=== PATIENT | male | born 1940 | race Caucasian/White ===

== ENCOUNTER 2019-04-29 08:21 | Inpatient (IN) | payer OTHER, SELFPAY ==
[2019-04-23 13:55] VITALS: BMI 27.4
[2019-04-29] VITALS (15 sets, daily range): BP systolic 97–157; BP diastolic 58–81; PULSE 62–83; RESP 12–18; TEMP 35.7–36.6; O2SAT 96–100; BMI 27.4
--- NOTE | 2019-04-29 07:37 | DI.RAD.S_ITS ---
PROCEDURE: XR KNEE LT 1TO2V INDICATIONS: Post op total knee TECHNIQUE: 2 view(s) of the knee acquired. COMPARISON: SNO Outside Film, RG, KNEE 3VW (LT), 03/09/2019, 15:38. FINDINGS: Bones: Patient is status post knee joint arthroplasty. Hardware components are in expected positions. Visualized bony structures are intact. Soft tissues: Overlying postoperative changes are noted. IMPRESSION: Left knee arthroplasty as above. Dictated by: Carrie Tran M.D. on 04/29/2019 at 14:00 Approved by: Carrie Tran M.D. on 04/29/2019 at 14:01
[2019-04-29] MEDS: LACTATED RINGERS 1,000 ML 42 ML IV ×2 (08:38→11:13)
[2019-04-29] MEDS: CELECOXIB 200 MG CAPSULE PO (09:09)
[2019-04-29] MEDS: PREGABALIN 75 MG CAPSULE PO (09:09)
[2019-04-29] MEDS: ACETAMINOPHEN 325 MG TABLET 975 MG PO ×2 (09:09→16:35)
--- NOTE | 2019-04-29 09:52 | PM.PREOP ---
Pre-operative Note Interval Note History & Physical reviewed/Exam performed by Physician: Yes Changes to H&P: No
--- NOTE | 2019-04-29 10:12 | P.OP_ITS ---
Operative Date/Time/Diagnoses Date of procedure: 04/29/19 Time of procedure: 12:00 Pre-op diagnosis: Left knee osteoarthritis Post-op diagnosis: same Procedure & Clinicians Procedure: Left total knee replacement Same procedure as scheduled: Yes Indications: The patient has had progressively worsening left knee pain with radiographic changes consistent with arthritis. Non-operative management has failed and the patient has requested total knee replacement. The risks, benefits and alternatives to surgery were discussed with the patient prior to proceeding. Risks discussed included, but were not limited to, failure to relieve pain, stiffness, infection, nerve damage, deep venous thrombosis, pulmonary embolism, stroke, coma, heart attack, permanent paralysis and , as well as the potential need for eventual revision of the prosthetic. Surgeon: Jasvir Johnson Strip Mine Supervisor: Pilar Duncan Click Yes if Unassisted: No Anesthesia Type: General, Peripheral nerve block and Local Operative Notes Findings: Severe osteoarthritis of the left knee with market varus deformity and erosion of the medial tibial plateau Closure Type: primary Specimen(s): none sent Prosthetic devices, grafts, tissues, transplants, or devices: Implants used in this procedure were manufactured by the [employer] and [facility] and included the BCS II Journey total knee replacement with a size 8 left cobalt chromium femur, size 7 left non porous tibial base plate, a 10 mm cross-linked polyethylene BCS II tibial insert and a 38 mm oval Azra II patellar component. Applied: implant(s) Estimated Blood Loss (mL): 25 Blood products transfused: none Tourniquet time (min): 62 Procedure in detail: The patient was seen in the pre-operative area, where the left knee was identified as the operative site and this was marked with my initials. The patient received pre-operative antibiotics, and was taken to the operating room and placed on the operative table in the supine position. After satisfactory anesthesia, a sheeter machine operator out? was performed. The left leg was encircled with a tourniquet about the proximal thigh, and the leg was prepared from the toes to the tourniquet with ChloroPrep in the usual fashion and draped through sterile drapes. The leg was elevated and exsanguinated with Eschmark bandage and the tourniquet inflated to 250 mmHg pressure. The knee was approached through an approximately 18 cm incision centered over the patella and carried into the knee through a medial parapatellar arthrotomy. A medial release of the tissues off the tibia was performed due to the significant varus deformity. The anterior osteophytes and soft tissues were removed. The rotational landmarks of Musselshell's line and the transepicondylar axis were marked on the femur with electrocautery, and intramedullary guide holes for the femur and tibia were created. The distal femoral cut was made in 6 degrees of valgus using the intramedullary guide at the primary cut setting. The proximal tibial cut was then made using the intramedullary guide, taking 9 mm of bone off the less involved side. The extension gap was checked and the rotation of the femoral component confirmed with the gap balancing blocks. The anterior, posterior and chamfer cuts were then made. The posterior osteophytes and soft tissues were then removed. The posterior capsule was injected with part of a mixture of 60 ml 0.25% Marcaine mixed with 20 ml Exparel and 4 mg of morphine for post-operative pain control. The remainder of this mixture was injected into the capsule and subcutaneous tissues during cement curing. The tibia was prepared with the rotation set by an extra medullary guide. Trial tibial and femoral components were then placed and the intercondylar notch cut through the femoral trial. Range of motion was 0-130 degrees, with good stability throughout the range. The patella was then cut to accommodate the patellar prosthetic. There was no need for a lateral release. The trials were then removed, and the femoral hole plugged with a bone plug. The bone was prepared with pulsatile lavage, and dried with a sponge. Cement was applied and the final prosthetics placed. Excess cement was removed during and after cement curing. After confirming there was no extruded cement posteriorly, the final tibial insert was placed. The knee was copiously irrigated and the tourniquet deflated. Hemostasis was obtained. The capsule was closed with interrupted # 2 polyester sutures. The subcutaneous layer was closed with 3-0 Vicryl, and the skin with a running 3-0 V-Lock suture and SteriStrips. An Aquacel Ag dressing was applied and the patient was taken to recovery having tolerated the procedure well. Complications: none Condition: stable Disposition: PACU Plan for aftercare: The patient will be maintained on a standard total knee replacement protocol with weight bearing as tolerated. The patient will receive aspirin and sequential compression devices for DVT prophylaxis. The patient will be discharged home when safe for the home environment.
[2019-04-29] MEDS: MIDAZOLAM 2 MG/2 ML VIAL 1 MG IV (10:22)
[2019-04-29] MEDS: fentaNYL 100 MCG/2 ML INJ 50 MCG IV ×3 (10:22→13:35)
--- NOTE | 2019-04-29 10:28 | SUR.PREOP ---
Pt transferred to room 5 for block. Block start time 1020. Monitoring initiated and maintained throughout procedure. Oxygen and medications given per anesthesiologist instructions. Patient remained stable throughout procedure, no adverse reactions noted. Block end time 1030.
[2019-04-29] MEDS: CEFAZOLIN 2 GM/100 ML FROZ.PIGGY IV ×2 (10:37→22:36)
[2019-04-29] MEDS: TRANEXAMIC ACID 1,000 MG VIAL 1000 MG INJ ×2 (11:07→12:18)
--- NOTE | 2019-04-29 11:20 | SUR.OPER ---
Supine on padded OR bed. Pillow under head, arms secured on padded armboards <90 degree abduction. Safety belt across torso. Non-operative leg secured with tape over blanket over lower leg. Operative leg secured in DeMayo/Ibrahima positioner.
[2019-04-29] MEDS: BUPIVACAINE 0.25% W/ EPI 30 ML VIAL 60 ML INJ (11:30)
[2019-04-29] MEDS: MORPHINE 4 MG/ML INJ INJ (11:31)
[2019-04-29] MEDS: BUPIVACAINE LIPOSOME 266 MG/20 ML VIAL INJ (11:31)
[2019-04-29] MEDS: HYDROMORPHONE 2 MG INJ 0.5 MG IV (13:23)
[2019-04-29] MEDS: LACTATED RINGERS 1,000 ML 125 ML IV ×2 (14:30→22:36)
--- NOTE | 2019-04-29 15:21 | PC.NURSE ---
1405 Pt arrived from PACU via bed. Pt A&Ox4. O2 2 LNC on, SL R FA. SCD on, Pt able to do ankle waves. Pt denies pain at this time. at bedside. 1435 Pt states not voided since 829, completed a bladder scan for 660. 1445 Pt voided [address] cath for 300ml.
[2019-04-29] MEDS: IBUPROFEN 400 MG TABLET PO ×2 (16:58→21:07)
[2019-04-29] MEDS: CARBIDOPA-LEVODOPA 25/100 TABLET 1 EACH PO (16:59)
[2019-04-29] MEDS: OXYCODONE IR 5 MG TABLET PO (19:32)
[2019-04-29] MEDS: DOCUSATE 100 MG CAPSULE PO (21:07)
[2019-04-29] MEDS: TRAZODONE 50 MG TABLET PO (21:08)
[2019-04-29] MEDS: ASPIRIN EC 81 MG TABLET PO (21:08)
[2019-04-29] MEDS: CARBIDOPA-LEVODOPA ER 50/200 TABLET 1 EACH PO (21:08)
[2019-04-29] MEDS: ACYCLOVIR 400 MG TABLET PO (21:08)
[2019-04-29] MEDS: PRAMIPEXOLE 0.25 MG TABLET 0.5 MG PO (21:08)
[2019-04-30] MEDS: IBUPROFEN 400 MG TABLET PO ×6 (01:04→20:17)
[2019-04-30 04:01] VITALS: BP 124/60; PULSE 81; RESP 14; TEMP 36.4; O2SAT 99
[2019-04-30] MEDS: CEFAZOLIN 2 GM/100 ML FROZ.PIGGY IV (05:54)
[2019-04-30 05:56] LABS: Hematocrit 32.7 % (41-53); Hemoglobin 11.2 g/dL (13.5-17.5)
--- NOTE | 2019-04-30 06:47 | PC.NURSE ---
Pt. slept most of the shift, reported left & foot numbness is much less this morning. Pain level 2-3/10, only medicated with 400 mg. of Ibuprofen X 2 doses all shift. Took pills with saltine & michele crackers, did not get up OOB, using his urinal & voiding QS 150-675 CC. Will cont. POC & monitor.
--- NOTE | 2019-04-30 07:28 | PM.PNPO.1 ---
Subjective Date Patient Seen: 04/30/19 Time Patient Seen: 07:29 Interval history: The patient reports excellent pain control. He has no specific complaints this morning. He reports he did not have the opportunity to see Physical therapy yesterday. Exam Vital Signs (past 8 hours): - 04/29/19 23:55 04/30/19 04:01 Temperature 97.5 F L 97.5 F L Pulse Rate 76 81 Respiratory Rate 14 14 Blood Pressure 121/60 124/60 Pulse Oximetry 96 99 Oxygen Delivery Method Nasal Cannula Oxygen Flow Rate 0 Narrative Exam Narrative: Left knee wound is dressed with no drainage on the bandage. Calf is soft. Light touch and motion are intact in the left lower extremity. Objective Labs Result Diagrams: 04/30/19 05:07 Labs: Laboratory Results - last 24 hr 04/30/19 05:07 Hgb 11.2 L Hct 32.7 L Assessment & Plan Post-op Postoperative Procedures Operation Date: 04/29/19 10:30 Actual Procedures Side Surgeon p Total Knee Arthroplasty Left Jasvir Johnson MD Postoperative day: 1 Postoperative status: doing well and anemia Postoperative status narrative: The patient is doing well postoperative day 1 status post left total knee replacement. He did not get a chance to see physical therapy yesterday. He does have a mild post hemorrhagic anemia. Postoperative plan: routine post-op care and ambulate Postoperative plan narrative: We will initiate physical therapy today. The patient lives on [facility] and is concerned about being completely ready to go home before being discharged to avoid having to return to the hospital. We will reassess him tomorrow after he has had physical therapy today for possible discharge tomorrow. Time Spent With Patient less than 15 minutes Quality VTE Deep Vein Thrombosis/Pulmonary Embolism Present on Admission: No
[2019-04-30 07:40] VITALS: BP 129/71; PULSE 73; RESP 18; TEMP 36.6; O2SAT 98
[2019-04-30] MEDS: OXYCODONE IR 5 MG TABLET PO ×3 (08:58→23:32)
[2019-04-30] MEDS: FERROUS SULFATE 325 MG TABLET PO (08:58)
[2019-04-30] MEDS: DOCUSATE 100 MG CAPSULE PO ×2 (08:58→20:18)
[2019-04-30] MEDS: ASPIRIN EC 81 MG TABLET PO ×2 (08:58→20:17)
[2019-04-30] MEDS: ACYCLOVIR 400 MG TABLET PO ×2 (08:59→20:17)
[2019-04-30] MEDS: ACETAMINOPHEN 325 MG TABLET 975 MG PO ×3 (08:59→20:15)
[2019-04-30] MEDS: POLYETHYLENE GLYCOL 3350 17 GM POWD.PACK PO (09:01)
--- NOTE | 2019-04-30 09:57 | PT.IIE ---
Current Diagnoses Unilateral primary osteoarthritis, left knee (04/29/19) Surgery Performed Operation Date: 04/29/19 10:30 Actual Procedures p Total Knee Arthroplasty(Left) - Jasvir Johnson MD Surgical History (Last Updated 04/23/19 @ 14:45 by Farheen Tejeda, RN) History of arthroplasty of left shoulder (Acute) History of arthroplasty of right shoulder (Acute) Hx of bilateral cataract extraction (Acute) S/P aortic valve replacement with bioprosthetic valve (Acute 10/05/14) Status post Dupuytren's fasciectomy (Acute) Medical History (Last Updated 04/23/19 @ 14:45 by Farheen Tejeda RN) Anemia (Acute) Atypical chest pain (Acute) BPH (benign prostatic hyperplasia) (Acute) Benign monoclonal gammopathy (Acute) CKD (chronic kidney disease), stage III (Acute) Chronic rhinitis (Acute) Depression (Acute) GERD (gastroesophageal reflux disease) (Acute) HLD (hyperlipidemia) (Acute) HTN (hypertension) (Acute) Herpes, genital (Acute) Melanoma (Acute) CHRISTIAN (obstructive sleep apnea) (Acute) Osteoarthritis (Acute) PTSD (post-traumatic stress disorder) (Acute) RBBB (right bundle branch block) (Acute) RLS (restless legs syndrome) (Acute) Physical Therapy Inpatient Evaluation/Re-Eval M1 PT/OT-IP Prior Functional Status Start: 04/29/19 15:40 Freq: NEEDED Status: Active Protocol: Document 04/30/19 09:57 AB (Rec: 04/30/19 12:50 AB [id number]) Medical Review Prior Functional Status Medical History Reviewed Yes Communication able to make needs known Mobility and Gait pt stated that he is independent with all mobilities and ambulation without AD but uses a SPC for long distance ambulation Social History Household Members spouse Living Arrangements House Number of Floors (Floors) One Floor Number of Stairs To Enter/Railing? 1 step to enter Home Environment Standard Height Toilet Walk in Shower Home Equipment Front Wheel Walker Raised Toilet Seat w/Armrests Employment Status Retired M2 PT-IP Current Condition Start: 04/29/19 15:40 Freq: NEEDED Status: Active Protocol: Document 04/30/19 09:57 AB (Rec: 04/30/19 12:50 AB [id number]) Physical Therapy Current Condition Current Condition Evaluation Date 04/30/19 Treatment Diagnosis s/p L TKR; difficulty in walking Onset Date 04/29/19 Weight Bearing Status Weight Bearing Status Weight Bear as Tolerated M3 PT-IP Subjective Start: 04/29/19 15:40 Freq: NEEDED Status: Active Protocol: Document 04/30/19 09:57 AB (Rec: 04/30/19 12:50 AB [id number]) Subjective Physical Therapy Visit Type Type Initial Evaluation Visit Start Time 09:57 Visit Stop Time 10:40 Total Visit Minutes 43 Number of FISHER TRAMMEL NET Visits 0 Physical Therapy Visit Comments Patient Comments pt agreeable to do PT Therapy Pain Assessment Pain When Pain Assessed At Rest Pain Present Pain Present Pain Reported Location Left Leg Intensity 6 Scale Used Numeric (1 - 10) Pain Management Techniques Apply Cold Re-positioning Timing of Activity with Medications M4 PT-IP Mobility and Gait Start: 04/29/19 15:40 Freq: NEEDED Status: Active Protocol: Document 04/30/19 09:57 AB (Rec: 04/30/19 12:50 AB [id number]) PT-Bed Mobility Assessment Supine to Sit Supine to Sit Standby Assistance Sit to Supine Sit to Supine Standby Assistance Scooting Scooting to Edge of Bed Standby Assistance PT-Transfer Assessment Sit to and From Stand Sit to and from Stand Contact Guard Assistance Equipment Transfer Assistive Device Gait Belt Front Wheeled Walker Orthotic/Prosthetic Devices or Brace: No Transfers Transfer Destination Bed Chair Transfer Technique pt ambulated using FWW Transfer Ability Level of Assist Minimal Assistance Comments Mobility Comments pt completed bed mobilty supine<>sit x 2 sets SBA with pt using RLE to assist LLE. Gait Assessment Gait Gait Assistance Required: Minimum Assistance Distance (Feet) 40 Able to Maintain Weight Bearing Status Yes During Gait Assistive Devices Assistive Device Gait Belt Front Wheeled Walker Orthotic/Prosthetic Devices or Brace: No Gait Deviations General Gait Pattern Antalgic Decreased Stride Length Decreased Feet Clearance Factors Limiting Gait Function Factors Limiting Gait Function Decreased Activity Tolerance Decreased Strength Limited Range of Motion Pain Poor Balance PT-Balance Assessment Sitting Balance and Reactions Static Sitting Balance Ability Good Dynamic Sitting Balance Ability Good Standing Balance and Reactions Static Standing Balance Ability Fair Dynamic Standing Balance Ability Fair Device Used FWW M5 PT-IP Objective Assessments Start: 04/29/19 15:40 Freq: NEEDED Status: Active Protocol: Document 04/30/19 09:57 AB (Rec: 04/30/19 12:50 AB [id number]) Orientation Orientation/Cognition Level of Alertness Alert Orientation Name Age Place Situation Language Function Ability No Deficits Noted Safety Awareness Understands Safety Issues Gross Range of Motion Lower Extremity ROM Assessment Left Impaired Impairments L knee flexion ~ 70 deg L knee extension: lacking ~ 10 deg to extension Strength Lower Extremity Strength Assessment Left Impaired Hip 4-/5 Knee 3+/5 Coordination Assessment Gross Coordination Gross Coordination WNL Sensation Assessment Sensation Gross Sensation WNL Muscle Tone Muscle Tone WNL Yes M6 PT-IP Treatment Start: 04/29/19 15:40 Freq: NEEDED Status: Active Protocol: Document 04/30/19 09:57 AB (Rec: 04/30/19 12:50 AB [id number]) Physical Therapy Treatment Education Education Provided Precautions Weight Bearing Status Post-Op Packet Safety M7 PT-IP Assessment and Plan Start: 04/29/19 15:40 Freq: NEEDED Status: Active Protocol: Document 04/30/19 09:57 AB (Rec: 04/30/19 12:50 AB [id number]) PT Summary Assessment and Plan Potential Rehabilitation Potential Good Status of Condition at Evaluation Stable Summary Impairments Pain ROM Strength Balance Coordination Sensation Bed Mobility Transfers Gait Activity Tolerance Assessment Summary pt requiring min A with ambulation using FWW. pt will likely progress during hospital stay. pt plans to go home with spouse to assist him. will complete stair training prior to d/c. Goals Bed Mobility Goal Independent Transfer Goal Independent Gait Goal Standby Assistance Front Wheel Walker Gait Distance 200 Other Goals up/down 1 steps using FWW SBA Days to Meet Goals 3 Frequency of Treatment Frequency Of Treatment Twice a Day Treatment Plan Physical Therapy Treatment Plan Bed Mobility Training Transfer Training Gait Training Therapeutic Exercise Balance Retraining Post Op Education Discharge Planning Hot or Cold Pack Neuromuscular Re-ed Coordination Retraining Manual Therapy Recommendations To Nursing Amount of Assist Needed 1 Person Assist Discharge Recommendations PT Discharge Recommendations Home with Assistance Outpatient PT
[2019-04-30 11:09] VITALS: BP 131/65; PULSE 78; RESP 18; TEMP 36.8; O2SAT 98
[2019-04-30] MEDS: OXYCODONE IR 10 MG TABLET PO ×2 (11:54→20:15)
--- NOTE | 2019-04-30 14:53 | CM.DANOTE ---
Patient is an 79 year old male who was admitted on 04/29/19 for Left Total Knee. Pt has [place] CHO[place] for insurance and his PCP is Dr. Dc. EMR was reviewed. Per Ortho MD, pt tolerated procedure well and will work with PT and pt is still quite painful. Per PT, pt's pain seems to be managed better now and anticipate that pt will progress enough to safely d/c home with spouse assist and outpt PT. Pt resides on Saturday with his spouse and is Independent with ADL's and typically does not use DME for ambulation although a cane occasionally. Pt's spouse is available for assist at d/c and pt just wants to make sure that he is quite stable before d/c back to [facility]. Plan: SW to follow for further PT tomorrow to confirm that pt will be safe for d/c home with and outpt PT on Saturday. JESUS MANUEL Talbot Discharge Planning/Care Management CM Discharge Assessment Start: 04/30/19 14:52 Freq: Status: Active Protocol: Document 04/30/19 14:52 BF (Rec: 04/30/19 14:53 BF [id number]) Discharge Planning Assessment Assigned Watch Engineer JESUS MANUEL Schreiber DPOA/Assigned Designee Name spouse Advance Directives? Yes Advance Directives on File No History Provided By Patient Medical Record Has Patient been admitted in last 30 No days? Prior Living Arrangements House Household Members spouse Type of transporation used prior to Drives own vehicle admit Independent with ADL's Yes Is patient alert and oriented? Yes Caregiver for Another No Patient/Family Preference OP PT Therapy Barriers to Discharge No Discharge Plan Home Transportation Arrangement Spouse likely able to provide transport at d/c. Referrals Initiated None needed Whiteboard Updated in Patient Room with Yes name and ext. # of Watch Engineer Review Status In Process Please Provide Date Initial DC 04/30/19 Assessment Was Performed Next Review Type Continued Stay Review Pre-Anesthesia Assessment Start: 04/23/19 13:55 Freq: Status: Complete Protocol: Document 04/23/19 13:55 CAB (Rec: 04/23/19 14:36 CAB [id number]) Pre-Anesthesia Assessment Patient Also Known As (AKA) Don Patient Information Reviewed Via Phone Assessment Assessment Completed With Patient Diagnostic Results BMP/CMP CBC EKG Urinalysis Other Comment A1c. Outside labs/EKG scanned to record Primary Care Provider [facility] Seen Specialist in Last 12 Months Yes Specialist Seen Respiratory Therapy Assistant Mobility Architect Manager Orthopedist Other Comment Neurology Primary Language Cymro Supervisor Firearms Required No Height 180.34 cm Weight 89.358 kg Body Mass Index (BMI) 27.4 Hearing Ability Normal Visual Impairment No Limitations Visual Assist None Dentition Type Teeth, Natural Present Teeth, Missing Barriers to Learning None Other Aids No Hx Anesthesia Reactions No Hx Family Anesthesia Reaction No Hx Malignant Hyperthermia No Hx Blood Transfusions No Anesthesia Review Requested Anesthesia review completed prior to being scheduled alcohol intake current alcohol intake frequency a few times a week Smoking Status Former smoker how long ago did patient quit smoking Quit age 26 Substance Use Type does not use Musculoskeletal Symptoms Abnormal Gait Difficulty Walking Joint Pain Joint Stiffness Limited Range of Motion Muscle Cramps History of Falling (Recent or History of No ) Patient is completely paralyzed or No completely immobile Prosthesis or Orthotic Device Cane Mental Status Oriented to own ability Is patient on oxygen? No Does patient have JARA/SOB No Hx Sleep Apnea Yes: Pt denies having, no CPAP Currently Taking a Beta Kenneth No Can You Climb a Flight of Stairs Without Yes SOB Hx Chest Pain No Hx SOB No Hx Syncope or Dizziness No Anti-Coagulant Therapy Yes: 81mg daily, advised to stay on through surgery per surgeon Has a Respiratory Therapy Assistant Yes: [facility] Cardiac Testing Yes: Coronary angiogram Hx Pacemaker/ICD No Pacemaker Rep Required? No Comment Cardiology visit 09/09/18 scanned to record Diet Type At Home Regular dysphagia No Bladder Pattern Nocturia Urinary Catheter Present No Hx Urinary Self Catheterization No Diabetes No HgbA1C 5.4 Date 04/07/19 Hx Drug Resistant Organism No Presence of External or Internal Medical No Devices Have you traveled outside the [facility] in the last 30 days? Marital Status Lives With spouse Prior Living Arrangements House Number of Floors (Floors) One Floor Support System Spouse Does the Patient Have Assistance After Yes Surgery Patient Discharge Plan Description Return Home Comment Pt advised 2-3 night length of stay per surgeon's office Feels Safe in Current Environment Yes Been Physically Hurt or Threatened By a No Person in Current Environment Do you have thoughts of harming yourself None or others? Are you currently considering suicide? No Do you have a plan to hurt yourself or No Plan others? Do You Have Any Spiritual Beliefs That No May Affect Your HC Choices? Do You Have Any Cultural Practices That No May Affect Your HC Choices? Spiritual Referral None Who Can We Speak to About Patient's Care Family, friends Identifying Code for Release of Patient Declines to issue Information Health Care Proxy/Next of Kin Claribel () Health Care Proxy Emergency Contact Name Claribel () Emergency Contact Advance Directives? Yes Advance Directives on File No Requested Patient Bring Advanced Yes Directives DOS Power of Scullion Chief Yes Power of Scullion Chief Name Claribel () Power of Scullion Chief PAC Instructions Durable medical equipment Medications to take/avoid Nasal antibiotic No ETOH/petroleum product on skin DOS NPO Post-op transportation Pre-surgical wash Sturdy shoes/comfortable clothes Do not bring valuables and remove jewelry
[2019-04-30 15:25] VITALS: BP 123/62; PULSE 79; RESP 17; TEMP 37.2; O2SAT 96
--- NOTE | 2019-04-30 15:41 | PT.IPTN ---
Current Diagnoses Unilateral primary osteoarthritis, left knee (04/29/19) Surgery Performed Operation Date: 04/29/19 10:30 Actual Procedures p Total Knee Arthroplasty(Left) - Jasvir Johnson MD Physical Therapy Treatment Note M2 PT-IP Current Condition Start: 04/29/19 15:40 Freq: NEEDED Status: Active Protocol: Document 04/30/19 09:57 AB (Rec: 04/30/19 12:50 AB [id number]) Physical Therapy Current Condition Current Condition Evaluation Date 04/30/19 Treatment Diagnosis s/p L TKR; difficulty in walking Onset Date 04/29/19 Weight Bearing Status Weight Bearing Status Weight Bear as Tolerated M3 PT-IP Subjective Start: 04/29/19 15:40 Freq: NEEDED Status: Active Protocol: Document 04/30/19 15:41 AB (Rec: 04/30/19 17:45 AB [id number]) Subjective Physical Therapy Visit Type Type Treatment Note Visit Start Time 15:41 Visit Stop Time 16:38 Total Visit Minutes 57 Number of METAL FABRICATOR WELDER Visits 0 Physical Therapy Visit Comments Patient Comments pt agreeable to do PT Therapy Pain Assessment Pain When Pain Assessed At Rest Pain Present Pain Present Pain Reported Location Left Leg Intensity 4 Scale Used Numeric (1 - 10) Pain Management Techniques Apply Cold Re-positioning Timing of Activity with Medications M4 PT-IP Mobility and Gait Start: 04/29/19 15:40 Freq: NEEDED Status: Active Protocol: Document 04/30/19 15:41 AB (Rec: 04/30/19 17:45 AB [id number]) PT-Bed Mobility Assessment Supine to Sit Supine to Sit Standby Assistance Scooting Scooting to Edge of Bed Standby Assistance PT-Transfer Assessment Sit to and From Stand Sit to and from Stand Standby Assistance Equipment Transfer Assistive Device Gait Belt Front Wheeled Walker Orthotic/Prosthetic Devices or Brace: No Transfers Transfer Destination Chair Transfer Technique pt ambulated using fWW Gait Assessment Gait Gait Assistance Required: Standby Assistance Contact Guard Assist Distance (Feet) 100 Able to Maintain Weight Bearing Status Yes During Gait Assistive Devices Assistive Device Gait Belt Front Wheeled Walker Orthotic/Prosthetic Devices or Brace: No Gait Deviations General Gait Pattern Antalgic Decreased Stride Length Decreased Feet Clearance Factors Limiting Gait Function Factors Limiting Gait Function Decreased Activity Tolerance Decreased Strength Limited Range of Motion Pain Poor Balance Comments Gait Comments pt ambulated towards the stairs using FWW ~ 100 ft SBA to CGA and back to the room ~ 75 ft using FWW SBA to CGA. increase antalgic gait towards end of ambulation and instructed pt to sit down on w/c. pt agreed to sit up on chair after ambulation. set up pt on chair. call light and table placed within reach. Stair Climbing Assessment Evaluation Level of Assist On Stairs Minimal Assistance Devices Stair Climbing Assistive Devices Front Wheel Walker Technique/Endurance Stair Climbing Direction Ascend and Descend Stair Climbing Technique Step to Step Number of Steps Climbed 1 Stair Climbing Set # Repetitions (reps) 4 Comments Stair Climbing Comments caregiver training conducted with pt and spouse. educated spouse on how to use safety belt. spouse was able to assist pt with stairs safely. pt requires cues for techniques. M5 PT-IP Objective Assessments Start: 04/29/19 15:40 Freq: NEEDED Status: Active Protocol: Document 04/30/19 09:57 AB (Rec: 04/30/19 12:50 AB [id number]) Orientation Orientation/Cognition Level of Alertness Alert Orientation Name Age Place Situation Language Function Ability No Deficits Noted Safety Awareness Understands Safety Issues Gross Range of Motion Lower Extremity ROM Assessment Left Impaired Impairments L knee flexion ~ 70 deg L knee extension: lacking ~ 10 deg to extension Strength Lower Extremity Strength Assessment Left Impaired Hip 4-/5 Knee 3+/5 Coordination Assessment Gross Coordination Gross Coordination WNL Sensation Assessment Sensation Gross Sensation WNL Muscle Tone Muscle Tone WNL Yes M6 PT-IP Treatment Start: 04/29/19 15:40 Freq: NEEDED Status: Active Protocol: Document 04/30/19 15:41 AB (Rec: 04/30/19 17:45 AB [id number]) Physical Therapy Treatment Education Education Provided Post-Op Packet Safety Other Treatments Other Treatment Performed reviewed HEP with pt and spouse. educated on how to do car transfers. M7 PT-IP Assessment and Plan Start: 04/29/19 15:40 Freq: NEEDED Status: Active Protocol: Document 04/30/19 15:41 AB (Rec: 04/30/19 17:45 AB [id number]) PT Summary Assessment and Plan Potential Rehabilitation Potential Good Summary Impairments Pain ROM Strength Balance Coordination Sensation Tone Cognition Bed Mobility Transfers Gait Activity Tolerance Progress Towards Goals Progressing Toward Goals Assessment Summary caregiver training conducted and spouse was able to assist pt with stair climbing. pt is set up for outpt PT. pt may go home when medically stable. Goals Bed Mobility Goal Independent Transfer Goal Independent Gait Goal Standby Assistance Front Wheel Walker Gait Distance 200 Other Goals up/down 1 steps using FWW SBA Days to Meet Goals 3 Frequency of Treatment Frequency Of Treatment Twice a Day Treatment Plan Physical Therapy Treatment Plan Bed Mobility Training Transfer Training Gait Training Therapeutic Exercise Balance Retraining Post Op Education Discharge Planning Hot or Cold Pack Neuromuscular Re-ed Coordination Retraining Manual Therapy Recommendations To Nursing Amount of Assist Needed 1 Person Assist Discharge Recommendations PT Discharge Recommendations Home with Assistance Outpatient PT
[2019-04-30] MEDS: CARBIDOPA-LEVODOPA 25/100 TABLET 1 EACH PO (18:11)
[2019-04-30 19:30] VITALS: BP 147/70; PULSE 81; RESP 18; TEMP 36.8; O2SAT 98
[2019-04-30] MEDS: CARBIDOPA-LEVODOPA ER 50/200 TABLET 1 EACH PO (20:15)
[2019-04-30] MEDS: PRAMIPEXOLE 0.25 MG TABLET 0.5 MG PO (20:16)
[2019-04-30] MEDS: TRAZODONE 50 MG TABLET PO (20:17)
[2019-04-30 23:20] VITALS: BP 113/64; PULSE 83; RESP 15; TEMP 36.7; O2SAT 96
--- NOTE | 2019-04-30 23:47 | PC.NURSE ---
Addendum entered by Oma Zhou R.N. 05/01/19 05:24: Slept at intervals. States pain is only 3/10 this morning and tolerable so declines narcotic medication; medicated with scheduled Ibuprofen and ice applied. Original Note: Patient is alert and oriented; soft spoken. Breath sounds CTA with RA sat of 96%. HRR. Denies nausea. BT present and had BM on previous shift. Denies dysuria, frequency or urgency; using urinal while in bed. Able to move himself in bed. Reportedly using walker and 1 assist when out of bed. States he has difficulty walking due to pain and hesitancy to put full weight on leg. Able to only raise left leg slightly off bed. Dressing to left knee is CDI. Complains of 5/10 pain so medicated with Oxycodone but declines ice pack. CMS is intact. SCD's applied at shift changed. Fall risk score is moderate; patient calling for assistance appropriately.
[2019-05-01] MEDS: IBUPROFEN 400 MG TABLET PO ×3 (00:57→08:06)
[2019-05-01 05:19] VITALS: BP 116/66; PULSE 79; RESP 15; TEMP 36.6; O2SAT 97
[2019-05-01 07:25] VITALS: BP 121/63; PULSE 81; RESP 16; TEMP 36.7; O2SAT 95
[2019-05-01] MEDS: POLYETHYLENE GLYCOL 3350 17 GM POWD.PACK PO (08:06)
[2019-05-01] MEDS: ACYCLOVIR 400 MG TABLET PO (08:06)
[2019-05-01] MEDS: FERROUS SULFATE 325 MG TABLET PO (08:06)
[2019-05-01] MEDS: OXYCODONE IR 5 MG TABLET PO ×2 (08:06→11:00)
[2019-05-01] MEDS: ACETAMINOPHEN 325 MG TABLET 975 MG PO (08:06)
[2019-05-01] MEDS: DOCUSATE 100 MG CAPSULE PO (08:06)
[2019-05-01] MEDS: ASPIRIN EC 81 MG TABLET PO (08:06)
--- NOTE | 2019-05-01 08:13 | PM.DS.1 ---
History of Present Illness Date Patient Seen: 05/01/19 Time Patient Seen: 08:13 Chief complaint: [id number] Narrative: History and physical are contained in the chart previously completed note. Please refer to that note for this information. Discharge Providers Date of admission: 04/29/19 08:21 Discharge Date: 05/01/19 Primary care physician: Mariela Dc Consults: 04/29/19 14:14 Consult to Discharge Planning Routine Comment: Consult to Physical Therapy Evaluate & Treat Comment: Physician Instructions: postop TKA protocol Discharge provider: Jasvir Johnson MD Summary Discharge Diagnosis: 1. Left knee osteoarthritis 2. Post hemorrhagic anemia Exam Vital Signs (past 8 hours): - 05/01/19 05:19 Temperature 97.8 F Pulse Rate 79 Respiratory Rate 15 Blood Pressure 116/66 Pulse Oximetry 97 Oxygen Delivery Method Room Air Oxygen Flow Rate 0 Narrative Exam Narrative: Left knee wound is dressed with no drainage on the bandage. Calf is without swelling tenderness or edema. Light touch and motion are intact in the left lower extremity. Objective Labs Result Diagrams: 04/30/19 05:07 Discharge Plan Discharge Plan Patient Disposition: Home Discharge Med Rec/Prescriptions Prescriptions: New aspirin 81 mg Tablet,Delayed Release (Dr/Ec) 81 mg PO BID 42 Days Qty: 84 RF: 0 oxycodone 5 mg Tablet 5 mg PO Q3HR PRN (Reason: Pain, Moderate (4-6)) Qty: 40 RF: 0 acetaminophen 325 mg Tablet 500 mg PO Q4HR 30 Days RF: 0 Continued trazodone 50 mg Tablet 50 mg PO BEDTIME RF: 0 carbidopa-levodopa 50-200 mg Tablet Extended Release 1 tab PO BEDTIME RF: 0 acyclovir 400 mg Tablet 400 mg PO BID RF: 0 pramipexole 0.5 mg Tablet 0.5 mg PO BEDTIME RF: 0 ferrous sulfate 325 mg (65 mg iron) Tablet,Delayed Release (Dr/Ec) 325 mg PO DAILY RF: 0 carbidopa-levodopa 25-100 mg Tablet 1 tab PO QPM RF: 0 Discontinued aspirin 81 mg Tablet,Delayed Release (Dr/Ec) 81 mg PO DAILY RF: 0 Follow up/Referrals: Jasvir Johnson MD [Physician] - 2 Weeks Mariela Dc [Primary Care Provider] - Provider Discharge Instructions Diet: Diet as Tolerated and Regular Activity: You may bear weight on your left leg as tolerated Cold/Heat Therapy: Apply ice to the left knee for 15 minutes of every hour as needed for pain Skin/Wound/Dressing Care Report to your healthcare provider any signs of infection, such as:: chills, fever, night sweats, increased pain, unusual drainage and unusual redness Dressing: Remove the Tao wrap on the 3rd postoperative day. Leave the deeper dressing intact. You may shower with the deeper dressing in place. Contact the office if the central strip of the deeper dressing becomes saturated with either water or blood. Visit Report/Discharge Packet Instructions: DI for Knee Replacement Stand Alone Forms: Surgery Discharge Discharge Data Primary Care Provider: Mariela Dc Attending Provider: Jasvir Johnson Admit Date/Time: 04/29/19 08:21 Quality VTE Deep Vein Thrombosis/Pulmonary Embolism Present on Admission: No
--- NOTE | 2019-05-01 08:45 | CM.DPC ---
Addendum entered by JESUS MANUEL Talbot 05/01/19 10:44: ADD: SW met bedside with pt and spouse and explained role and both confirm that they are agreeable with d/c back home today after final PT assessment and CG training and currently do not have any concerns regarding discharge home. Spouse plans to attempt [place] home. Plan: Patient to d/c home today around 1200 and no SW needs at this time. JESUS MANUEL Talbot Original Note: DCP Discharge Home Per Ortho MD, pt medically stable to d/c home today with spouse and no identified barriers to discharge. Per PT, spouse was able to participate in CG training yesterday afternoon and did well with cueing the pt and PT will work with pt and spouse again this morning prior to d/c. Per RN, pt's spouse is checking out of the local hotel this morning to be ready to provide transport for the pt back to their home on Saturday. SW attempted to meet with pt to check in but pt was in the bathroom. SW will try again when bedside. Plan: SW to follow for plan of pt d/c back home today via spouse POV and outpt PT already set up. JESUS MANUEL Talbot
--- NOTE | 2019-05-01 09:25 | PT.IPTN ---
Current Diagnoses Unilateral primary osteoarthritis, left knee (04/29/19) Surgery Performed Operation Date: 04/29/19 10:30 Actual Procedures p Total Knee Arthroplasty(Left) - Jasvir Johnson MD Physical Therapy Treatment Note M2 PT-IP Current Condition Start: 04/29/19 15:40 Freq: NEEDED Status: Active Protocol: Document 04/30/19 09:57 AB (Rec: 04/30/19 12:50 AB [id number]) Physical Therapy Current Condition Current Condition Evaluation Date 04/30/19 Treatment Diagnosis s/p L TKR; difficulty in walking Onset Date 04/29/19 Weight Bearing Status Weight Bearing Status Weight Bear as Tolerated M3 PT-IP Subjective Start: 04/29/19 15:40 Freq: NEEDED Status: Active Protocol: Document 05/01/19 09:20 GGD (Rec: 05/01/19 11:30 GGD [id number]) Subjective Physical Therapy Visit Type Type Treatment Note Visit Start Time 08:55 Visit Stop Time 09:20 Total Visit Minutes 25 Number of STRUCTURAL STEEL ERECTION SUPERVISOR Visits 1 Physical Therapy Visit Comments Patient Comments Pt hopes to D/C home. Therapy Pain Assessment Pain When Pain Assessed At Rest Pain Present Pain Present Pain Reported Location Left Leg Intensity 1 Scale Used Numeric (1 - 10) M4 PT-IP Mobility and Gait Start: 04/29/19 15:40 Freq: NEEDED Status: Active Protocol: Document 05/01/19 09:20 GGD (Rec: 05/01/19 11:30 GGD [id number]) PT-Transfer Assessment Sit to and From Stand Sit to and from Stand Standby Assistance Equipment Transfer Assistive Device Gait Belt Front Wheeled Walker Orthotic/Prosthetic Devices or Brace: No Transfers Transfer Destination Chair Transfer Ability Level of Assist Contact Guard Assistance Use of Upper Extremities Gait Assessment Gait Gait Assistance Required: Standby Assistance Contact Guard Assist Distance (Feet) 120 Able to Maintain Weight Bearing Status Yes During Gait Assistive Devices Assistive Device Gait Belt Front Wheeled Walker Orthotic/Prosthetic Devices or Brace: No Gait Deviations General Gait Pattern Antalgic Decreased Stride Length Decreased Feet Clearance Factors Limiting Gait Function Factors Limiting Gait Function Decreased Activity Tolerance Decreased Strength Limited Range of Motion Pain Poor Balance M5 PT-IP Objective Assessments Start: 04/29/19 15:40 Freq: NEEDED Status: Active Protocol: Document 04/30/19 09:57 AB (Rec: 04/30/19 12:50 AB [id number]) Orientation Orientation/Cognition Level of Alertness Alert Orientation Name Age Place Situation Language Function Ability No Deficits Noted Safety Awareness Understands Safety Issues Gross Range of Motion Lower Extremity ROM Assessment Left Impaired Impairments L knee flexion ~ 70 deg L knee extension: lacking ~ 10 deg to extension Strength Lower Extremity Strength Assessment Left Impaired Hip 4-/5 Knee 3+/5 Coordination Assessment Gross Coordination Gross Coordination WNL Sensation Assessment Sensation Gross Sensation WNL Muscle Tone Muscle Tone WNL Yes M6 PT-IP Treatment Start: 04/29/19 15:40 Freq: NEEDED Status: Active Protocol: Document 05/01/19 09:20 GGD (Rec: 05/01/19 11:30 GGD [id number]) Physical Therapy Treatment Exercises Exercises Ankle Pumps Quad Sets Heel Slides Seated Knee Flexion/Extension M7 PT-IP Assessment and Plan Start: 04/29/19 15:40 Freq: NEEDED Status: Active Protocol: Document 05/01/19 09:20 GGD (Rec: 05/01/19 11:30 GGD [id number]) PT Summary Assessment and Plan Summary Assessment Summary Pt improving with mobility. He need cues for gait pattern. Pt safe and stable with mobility and gait. He is safe for home D/C when medically stable. Frequency of Treatment Frequency Of Treatment Twice a Day Treatment Plan Physical Therapy Treatment Plan Bed Mobility Training Transfer Training Gait Training Therapeutic Exercise Balance Retraining Post Op Education Discharge Planning Hot or Cold Pack Neuromuscular Re-ed Coordination Retraining Manual Therapy Recommendations To Nursing Amount of Assist Needed 1 Person Assist Discharge Recommendations PT Discharge Recommendations Home with Assistance Outpatient PT
--- NOTE | 2019-05-01 11:30 | PT.IPTN ---
Current Diagnoses Unilateral primary osteoarthritis, left knee (04/29/19) Surgery Performed Operation Date: 04/29/19 10:30 Actual Procedures p Total Knee Arthroplasty(Left) - Jasvir Johnson MD Physical Therapy Treatment Note M2 PT-IP Current Condition Start: 04/29/19 15:40 Freq: NEEDED Status: Active Protocol: Document 04/30/19 09:57 AB (Rec: 04/30/19 12:50 AB [id number]) Physical Therapy Current Condition Current Condition Evaluation Date 04/30/19 Treatment Diagnosis s/p L TKR; difficulty in walking Onset Date 04/29/19 Weight Bearing Status Weight Bearing Status Weight Bear as Tolerated M3 PT-IP Subjective Start: 04/29/19 15:40 Freq: NEEDED Status: Active Protocol: Document 05/01/19 09:20 GGD (Rec: 05/01/19 11:30 GGD [id number]) Subjective Physical Therapy Visit Type Type Treatment Note Visit Start Time 08:55 Visit Stop Time 09:20 Total Visit Minutes 25 Number of BUS CLEANER Visits 1 Physical Therapy Visit Comments Patient Comments Pt hopes to D/C home. Therapy Pain Assessment Pain When Pain Assessed At Rest Pain Present Pain Present Pain Reported Location Left Leg Intensity 1 Scale Used Numeric (1 - 10) M4 PT-IP Mobility and Gait Start: 04/29/19 15:40 Freq: NEEDED Status: Active Protocol: Document 05/01/19 09:20 GGD (Rec: 05/01/19 11:30 GGD [id number]) PT-Transfer Assessment Sit to and From Stand Sit to and from Stand Standby Assistance Equipment Transfer Assistive Device Gait Belt Front Wheeled Walker Orthotic/Prosthetic Devices or Brace: No Transfers Transfer Destination Chair Transfer Ability Level of Assist Contact Guard Assistance Use of Upper Extremities Gait Assessment Gait Gait Assistance Required: Standby Assistance Contact Guard Assist Distance (Feet) 120 Able to Maintain Weight Bearing Status Yes During Gait Assistive Devices Assistive Device Gait Belt Front Wheeled Walker Orthotic/Prosthetic Devices or Brace: No Gait Deviations General Gait Pattern Antalgic Decreased Stride Length Decreased Feet Clearance Factors Limiting Gait Function Factors Limiting Gait Function Decreased Activity Tolerance Decreased Strength Limited Range of Motion Pain Poor Balance M5 PT-IP Objective Assessments Start: 04/29/19 15:40 Freq: NEEDED Status: Active Protocol: Document 04/30/19 09:57 AB (Rec: 04/30/19 12:50 AB [id number]) Orientation Orientation/Cognition Level of Alertness Alert Orientation Name Age Place Situation Language Function Ability No Deficits Noted Safety Awareness Understands Safety Issues Gross Range of Motion Lower Extremity ROM Assessment Left Impaired Impairments L knee flexion ~ 70 deg L knee extension: lacking ~ 10 deg to extension Strength Lower Extremity Strength Assessment Left Impaired Hip 4-/5 Knee 3+/5 Coordination Assessment Gross Coordination Gross Coordination WNL Sensation Assessment Sensation Gross Sensation WNL Muscle Tone Muscle Tone WNL Yes M6 PT-IP Treatment Start: 04/29/19 15:40 Freq: NEEDED Status: Active Protocol: Document 05/01/19 09:20 GGD (Rec: 05/01/19 11:30 GGD [id number]) Physical Therapy Treatment Exercises Exercises Ankle Pumps Quad Sets Heel Slides Seated Knee Flexion/Extension M7 PT-IP Assessment and Plan Start: 04/29/19 15:40 Freq: NEEDED Status: Active Protocol: Document 05/01/19 09:20 GGD (Rec: 05/01/19 11:30 GGD [id number]) PT Summary Assessment and Plan Summary Assessment Summary Pt improving with mobility. He need cues for gait pattern. Pt safe and stable with mobility and gait. He is safe for home D/C when medically stable. Frequency of Treatment Frequency Of Treatment Twice a Day Treatment Plan Physical Therapy Treatment Plan Bed Mobility Training Transfer Training Gait Training Therapeutic Exercise Balance Retraining Post Op Education Discharge Planning Hot or Cold Pack Neuromuscular Re-ed Coordination Retraining Manual Therapy Recommendations To Nursing Amount of Assist Needed 1 Person Assist Discharge Recommendations PT Discharge Recommendations Home with Assistance Outpatient PT
--- NOTE | 2019-05-01 11:41 | PC.NURSE ---
Discharge Pt states pain controlled with oxy and scheduled tylenol/ibuprofen. d/c instructions provided to pt and his . aware to f/u with MD and to contact MD with any additional questions or concerns. pt states he took all belongings with him. Dressing is CDI. left in w/c with RN C[employer]ITION and escort to car. priority boarding ferry pass given to pt to get home.
== END 2019-05-01 11:20 | disposition home or self-care (01) | DRG 470 ==
PROVIDERS: Admitting Provider Orthopaedic Surgery; PCP Nurse Practitioner Acute Care; Visit Provider Orthopaedic Surgery
PROC: 0SRD0JZ Replacement of Left Knee Joint with Synthetic Substitute, Open Approach (ICD-10-PCS; CPT 27447; principal; 2019-04-29 10:30)
DX: M17.12 Unilateral primary osteoarthritis, left knee (principal); M21.162 Varus deformity, not elsewhere classified, left knee; N18.3 Chronic kidney disease, stage 3 (moderate); I45.10 Unspecified right bundle-branch block; G25.81 Restless legs syndrome; G47.33 Obstructive sleep apnea (adult) (pediatric)
CPT/HCPCS: 36415; 64447; 73560; 85014; 85018; 97116; 97161; 97530; C1776; C9290; J0690; J1170; J2250; J2270; J2405; J2704; J3010